=== PATIENT | male | born 1995 | race Caucasian/White ===

== ENCOUNTER 2019-01-10 04:27 | Emergency (ER) | payer OTHER ==
[~2019-01-10] VITALS: Wt 110.2 kg
[~2019-01-10 04:27] MED LIST: IBUP-1542 PO
[2019-01-10 04:30] VITALS: BP 161/80; PULSE 78; RESP 18
[2019-01-10] MEDS ORDERED: CIPROFLOXACIN 500 MG TAB PO ONE (05:00)
--- NOTE | 2019-01-10 05:13 | ERD ---
ER Documentation Chief Complaint Chief Complaint EXPOSED TO FAMILY MEMBER WITH MENINGITIS HPI This is a 23-year-old male presents to the ED for prophylactic medications after being exposed to bacterial meningitis. Patient's family is currently being treated here in the ED for viral versus bacterial meningitis. Patient presents here for prophylactic dose of ciprofloxacin. He is here with a rest of his family for same. He denies any neck stiffness, headache, changes in vision, fevers, chills or focal neurological deficits. He is otherwise healthy with no other complaints. ROS All systems reviewed and are negative except as per history of present illness. Medications Home Meds Active Scripts Ibuprofen* (Motrin*) 600 Mg Tab, 600 MG PO Q6H PRN for PAIN AND OR ELEVATED TEMP, #30 TAB Prov:ARAM ROTHMAN PA-C 02/18/16 Allergies Allergies: Coded Allergies: No Known Allergy (Unverified , 07/27/13) PMhx/Soc History of Surgery: No Anesthesia Reaction: No Hx Neurological Disorder: No Hx Respiratory Disorders: No Hx Cardiac Disorders: No Hx Psychiatric Problems: No Hx Miscellaneous Medical Probl: No Hx Alcohol Use: No Hx Substance Use: No Hx Tobacco Use: No Physical Exam Vitals Vital Signs Date Temp Pulse Resp B/P (MAP) Pulse Ox O2 O2 Flow FiO2 Time Delivery Rate 01/10/19 99.2 78 18 161/80 99 04:30 (107) Physical Exam Const: No acute distress Head: Atraumatic Eyes: Normal Conjunctiva. EOMI. PERRL. ENT: Normal External Ears, Nose and Mouth. Neck: Full range of motion. No meningismus. Resp: Clear to auscultation bilaterally Cardio: Regular rate and rhythm, no murmurs Skin: No petechiae or rashes Back: No midline or flank tenderness Ext: No cyanosis, or edema Neuro: M/S: Alert and oriented Face: EOMI, face and pharynx with normal sensation and function Motor: Normal strength throughout Sensation: Normal sensation throughout Speech: Normal Cerebel: Normal coordination Normal gait Psych: Normal Mood and Affect Results 24 hrs Current Medications Medications Dose Sig/Mildred Start Time Status Last (Trade) Ordered Route PRN Stop Time Admin Dose Reason Admin 500 mg ONCE ONCE 01/10/19 DC 01/10/19 Ciprofloxacin PO 05:00 05:07 (Cipro) 01/10/19 05:01 Procedures/MDM This is a 23-year-old male who was recently exposed to a family member who was diagnosed with bacterial versus viral meningitis. He was given a prophylactic dose of ciprofloxacin here. He has no focal neurological deficits on physical exam. He has no fever here and vital signs are normal. He has no evidence suggesting meningitis, encephalitis, or any other acute emergent process at this time. He was discharged home in stable condition. Strict return precautions were discussed. Blood Pressure Assessment: Patient's blood pressure was elevated (>120/80) but appears stable without evidence of hypertension emergency or urgency. The patient was counseled about the risks of hypertension and urged to pursue outpatient monitoring and therapy within a week with their primary care physician. Departure Diagnosis: Primary Impression: Meningitis exposure Additional Impression: Encounter for medication management Condition: Stable Patient Instructions: Meningitis Additional Instructions: Call your primary care doctor TOMORROW for an appointment during the next 2-4 days and bring all the information and medications prescribed. If the symptoms get worse and your provider is unavailable, return to the Emergency Department immediately. MALATHI JIMÉNEZ PA-C January 10, 2019 05:12
== END 2019-01-10 05:31 | disposition home or self-care (01) ==
LOC: FTE 04:27
DX: Z20.818 Contact with and (suspected) exposure to other bacterial communicable diseases (principal); Z09 Encounter for follow-up examination after completed treatment for conditions other than malignant neoplasm
CPT/HCPCS: Z7502; Z7610; 99283

== ENCOUNTER 2019-02-14 04:18 | Emergency (ER) | payer OTHER ==
[~2019-02-14] VITALS: Ht 170.2 cm; Wt 112.0 kg
[2019-02-14 04:23] VITALS: Ht 170.2 cm; Wt 112.0 kg
--- NOTE | 2019-02-14 07:24 | ERD ---
ER Documentation Chief Complaint Chief Complaint upper back pain/chest pain x 1 hour ago HPI 23-year-old male presents with complaint of heart palpitations and lightheadedness occurring 1 hour ago. States that he woke up and felt his heart beating fast and then experienced some lightheadedness which since resolved. Denies any history of heart problems or chest pain. Denies any family history of heart problems. Denies SOB, dyspnea, lower extremity swelling or pain, pain on exertion, diaphoresis, nausea, radiating of pain, recent travel or immobilization, hemoptysis, dsypnea, history of clotting disorder, syncope, fever, or cough. Denies any medical problems. Denies any allergies. In addition, patient states that he has had right wrist pain since September due to an accident sustained at work. He is requesting an x-ray to rule out fracture. Denies any numbness, tingling, weakness, impaired range of motion. ROS All systems reviewed and are negative except as per history of present illness. Medications Home Meds Active Scripts Ibuprofen* (Motrin*) 600 Mg Tab, 600 MG PO Q6H PRN for PAIN AND OR ELEVATED TEMP, #30 TAB Prov:ARAM ROTHMAN PA-C 02/18/16 Allergies Allergies: Coded Allergies: No Known Allergy (Unverified , 07/27/13) PMhx/Soc Medical and Surgical Hx: pt denies Surgical Hx History of Surgery: No Anesthesia Reaction: No Hx Neurological Disorder: No Hx Respiratory Disorders: No Hx Cardiac Disorders: No Hx Psychiatric Problems: No Hx Miscellaneous Medical Probl: Yes (ANXIETY ) Hx Alcohol Use: No Hx Substance Use: No Hx Tobacco Use: No Smoking Status: Never smoker FmHx Family History: No diabetes, No coronary disease, No other Physical Exam Vitals Vital Signs Date Temp Pulse Resp B/P (MAP) Pulse Ox O2 O2 Flow FiO2 Time Delivery Rate 02/14/19 98.4 90 17 140/87 96 Room Air 07:25 (104) 02/14/19 99.9 105 20 164/86 98 04:23 (112) Physical Exam Const: No acute distress Head: Atraumatic Eyes: Normal Conjunctiva ENT: Normal External Ears, Nose and Mouth. Neck: Full range of motion. No meningismus. Resp: Clear to auscultation bilaterally Cardio: Regular rate and rhythm, no murmurs Abd: Soft, non tender, non distended. Normal bowel sounds Skin: No petechiae or rashes Back: No midline or flank tenderness Ext: No cyanosis, or edema. No snuffbox tenderness. Full range of motion of all wrist and fingers with pulses and sensation intact in upper and lower extremities. Neur: Awake and alert Psych: Normal Mood and Affect Result Diagram: 02/14/19 0652 02/14/19 0652 Results 24 hrs Laboratory Tests Test 02/14/19 06:52 White Blood Count 11.1 10^3/ul Red Blood Count 5.66 10^6/ul Hemoglobin 15.4 g/dl Hematocrit 47.7 % Mean Corpuscular Volume 84.3 fl Mean Corpuscular Hemoglobin 27.2 pg Mean Corpuscular Hemoglobin Concent 32.3 g/dl Red Cell Distribution Width 13.3 % Platelet Count 346 10^3/UL Mean Platelet Volume 9.7 fl Immature Granulocytes % 0.300 % Neutrophils % 75.1 % Lymphocytes % 16.4 % Monocytes % 7.2 % Eosinophils % 0.6 % Basophils % 0.4 % Nucleated Red Blood Cells % 0.0 /100WBC Immature Granulocytes # 0.030 10^3/ul Neutrophils # 8.3 10^3/ul Lymphocytes # 1.8 10^3/ul Monocytes # 0.8 10^3/ul Eosinophils # 0.1 10^3/ul Basophils # 0.0 10^3/ul Nucleated Red Blood Cells # 0.0 10^3/ul Sodium Level 143 mmol/L Potassium Level 4.2 mmol/L Chloride Level 105 mmol/L Carbon Dioxide Level 29 mmol/L Anion Gap 9 Blood Urea Nitrogen 14 mg/dl Creatinine 0.71 mg/dl Est Glomerular Filtrat Rate mL/min > 60 mL/min Glucose Level 107 mg/dl Calcium Level 9.5 mg/dl Total Bilirubin 0.6 mg/dl Direct Bilirubin 0.00 mg/dl Indirect Bilirubin 0.6 mg/dl Aspartate Amino Transf (AST/SGOT) 37 IU/L Alanine Aminotransferase (ALT/SGPT) 73 IU/L Alkaline Phosphatase 80 IU/L Total Protein 8.2 g/dl Albumin 4.7 g/dl Globulin 3.50 g/dl Albumin/Globulin Ratio 1.34 Procedures/MDM DIAGNOSTIC IMAGING REPORT Patient: JEWELS CLANCY : 1995 Age: 23 Sex: M MR #: [id number] DOS: 02/14/19 0623 Ordering MD: DURAN UNGER Location: [facility] Room/Bed: PROCEDURE: Right wrist series CLINICAL INDICATION: Trauma TECHNIQUE: AP, lateral, oblique and navicular views of the right wrist were obtained COMPARISON: None FINDINGS: No evidence acute fractures dislocations. No focal bony blastic or lytic lesions or erosions. Soft tissues are unremarkable. IMPRESSION: No evidence acute fracture dislocation. RPTAT:AAJJ Physician Tianna Date Time Electronically viewed and signed by Physician Tianna on 02/14/2019 06:56 BM/ CC: DURAN UNGER [id number] DIAGNOSTIC IMAGING REPORT Patient: JEWELS CLANCY : 1995 Age: 23 Sex: M MR #: [id number] DOS: 02/14/19 0618 Ordering MD: DURAN UNGER Location: [facility] Room/Bed: PROCEDURE: XR Chest. CLINICAL INDICATION: Palpitations TECHNIQUE: PA chest was obtained COMPARISON: None. FINDINGS: Cardiomediastinal silhouette is normal. Pulmonary vasculature normal. Lungs and costophrenic angles are clear. Bones soft tissues are unremarkable. IMPRESSION: No evidence of acute cardiopulmonary disease. RPTAT:AAJJ Physician Tianna Date Time Electronically viewed and signed by Physician Tianna on 02/14/2019 06:55 BM/ CC: DURAN UNGER [id number] EKG: Rate/Rhythm: Normal Sinus Rhythm QRS, ST, T-waves: No changes consistent w/ acute ischemia Impression: No evidence of ischemia or arrhythmia MDM: All labs and imaging were within normal limits. Patient's heart rate is 105 but can probably be explained by anxiety as he said he was feeling anxious during the EKG. I did a manual pulse in the waiting room and it was 96. Addition, patient has no fever, white count, and his EKG is normal. Patient does not meet sirs criteria. I have low suspicition for acute coronary syn drome, pulmonary embolism, aortic dissection, AAA, pneumothorax, esophageal rupture, pericarditis, myocarditis, or pneumonia based on EKG, imaging, labs, patient history and exam. Regarding patient's wrist pain, patient advised to follow-up with occupational therapy as x-rays are within normal limits. I have low suspicion for neurovascular compromise, compartment syndrome, fracture, osteomyelitis, septic joint, DVT, or other emergent condition. At this time, patient is stable for discharge and outpatient management. I have instructed the patient to follow-up with his/her primary care physician in 1-2 days. I have discussed with the patient the possibility of needing to see a specialist for further workup and imaging studies if symptoms persist. I have instructed the patient to promptly return to the ER for any new or worsening symptoms including but not limited to increased pain, fever, nausea, vomiting, weakness or LOC. The patient and/or family expressed understanding of and agre ement with this plan. All questions were answered. Home care instructions were provided. DISCLAIMER: Inadvertent spelling and grammatical errors are likely due to EHR/dictation software use and do not reflect on the overall quality of patient care. Also, please note that the electronic time recorded on this note does not necessarily reflect the actual time of the patient encounter. Departure Diagnosis: Primary Impression: Palpitations Additional Impression: Wrist pain Condition: Stable DURAN UNGER Feb 14, 2019 07:24
[2019-02-14 07:25] VITALS: BP 140/87; PULSE 90; RESP 17
== END 2019-02-14 08:36 | disposition home or self-care (01) ==
LOC: FTE 04:18
DX: R00.2 Palpitations (principal); M25.531 Pain in right wrist
CPT/HCPCS: 71045; 73110; 80053; 84484; 85025; 93005; Z7502